=== PATIENT | female | born 1960 | race Caucasian/White ===

== ENCOUNTER 2024-05-20 07:37 | Emergency (ER) | payer SELFPAY ==
[2024-05-20 07:48] VITALS: BP 128/73; PULSE 53; RESP 17; TEMP 97.6; BMI 24.9
[2024-05-20 08:42] LABS: INR 0.89 (0.83-1.09); PROTHROMBIN TIME (PATIENT) 10.3 SEC (9.7-13.0)
[2024-05-20 08:45] LABS: ACTIVATED PTT 28.6 SECONDS (25.2-36.5)
[2024-05-20 08:51] LABS: BASO % 0.8 % (0-2.0); HEMATOCRIT 41.2 % (32.4-45.2); LYMPH % 43.1 % (8-40); MCH 32.6 pg (25.7-33.7); MEAN CELL VOLUME 96.1 fl (80-96); MEAN PLT VOLUME 9.3 fl (7.5-11.1); MONO % 6.2 % (3.8-10.2); NEUT % 45.9 % (42.8-82.8); PLATELET COUNT 269 10^3/uL (134-434); RBC 4.29 M/mm3 (3.60-5.2); RDW 13.7 % (11.6-15.6); WHITE BLOOD COUNT 7.7 K/mm3 (4.0-10.0)
[2024-05-20] MEDS ORDERED: DIPHTH,PERTUSS(ACELL),TET 0.5 ML DISP.SYRIN IM ONE (08:55)
[2024-05-20 08:56] LABS: POTASSIUM 3.4 mmol/L (3.5-5.1)
[2024-05-20 09:00] LABS: ALBUMIN 3.8 g/dl (3.4-5.0); BLOOD UREA NITROGEN 12.8 mg/dL (7-18); CALCIUM 9.5 mg/dL (8.5-10.1)
[2024-05-20 09:03] LABS: CREATININE 1.2 mg/dL (0.55-1.3)
[2024-05-20] MEDS: DIPHTH,PERTUSS(ACELL),TET 0.5 ML DISP.SYRIN IM ONE (09:03)
[2024-05-20 09:04] LABS: BILIRUBIN,TOTAL 0.3 mg/dL (0.2-1)
[2024-05-20 12:24] LABS: HIV INTERPRETATION NEGATIVE (NEGATIVE)
== END 2024-05-20 11:04 | disposition home or self-care (01) ==
LOC: JER 07:37
PROC: 3E0234Z Introduction of Serum, Toxoid and Vaccine into Muscle, Percutaneous Approach (ICD-10-PCS; principal; 2024-05-20)
DX: R41.82 Altered mental status, unspecified (principal); M25.561 Pain in right knee; W01.0XXA Fall on same level from slipping, tripping and stumbling without subsequent striking against object, initial encounter; Z23 Encounter for immunization
CPT/HCPCS: 36415; 70450-TC; 73562-TC-RT-FY; 80053; 80061; 82962; 83036; 85025; 85610; 85730; 86803; 86850; 86900; 86901; 87389; 90715; 93005; 93010; 99285-25